=== PATIENT | female | born 1950 | race Caucasian/White ===

== ENCOUNTER 2018-09-09 10:22 | Emergency (ER) | payer MEDICARE, OTHER ==
[2018-09-09] MEDS ORDERED: Take Home: Amoxicillin/Clavulanate K 875-125 MG Tab, 2 Tab Pack PO ONE (10:41)
[2018-09-09] MEDS ORDERED: Amoxicillin/Clavulanate K 875-125 MG Tab PO ONE (10:41)
--- NOTE | 2018-09-09 10:47 | EDM.PDOC ---
ED HPI GENERAL MEDICAL PROBLEM - General Chief Complaint: General Stated Complaint: sinus complaints Time Seen by Provider: 09/09/18 10:28 Source of Information: Reports: Patient History Limitations: Reports: No Limitations - History of Present Illness INITIAL COMMENTS - FREE TEXT/NARRATIVE: Patient reports cough, sinus pain and pressure since Monday. History includes breast cancer with treatment with herceptin. Last treatment MondaySeptember 03. Reports fever, chills, headache, nausea. No vomiting, chest pain, sob, diarrhea. Onset: Gradual Duration: Getting Worse Location: Reports: Head Associated Symptoms: Reports: Cough, Nausea/Vomiting - Related Data Allergies Allergy/AdvReac Type Severity Reaction Status Date / Time paclitaxel [From Taxol] Allergy Cannot Verified 09/09/18 10:35 Remember Home Meds: Home Meds Anastrozole [Arimidex] 1 mg PO DAILY 09/09/18 [History] Denosumab [Prolia] 60 mg .XX Q6M 09/09/18 [History] Levothyroxine [Synthroid] 100 mcg PO ACBREAKFAST 09/09/18 [History] Lisinopril 2.5 mg PO DAILY 09/09/18 [History] Multivitamin [Daily Multiple Vitamin] 1 each PO DAILY 09/09/18 [History] Past Medical History Cardiovascular History: Reports: Hypertension Gastrointestinal History: Reports: Celiac Disease Endocrine/Metabolic History: Reports: Hypothyroidism Oncologic (Cancer) History: Reports: Breast Social & Family History - Tobacco Use Smoking Status *Q: Unknown Ever Smoked ED ROS GENERAL - Review of Systems Review Of Systems: See Below Constitutional: Reports: Fever, Chills HEENT: Reports: Sinus Problem, Throat Pain Respiratory: Reports: Cough Cardiovascular: Reports: No Symptoms Endocrine: Reports: No Symptoms GI/Abdominal: Reports: No Symptoms : Reports: No Symptoms Musculoskeletal: Reports: No Symptoms Skin: Reports: No Symptoms Neurological: Reports: No Symptoms Psychiatric: Reports: No Symptoms Hematologic/Lymphatic: Reports: No Symptoms Immunologic: Reports: No Symptoms ED EXAM, GENERAL - Physical Exam Exam: See Below Exam Limited By: No Limitations General Appearance: Alert, WD/WN, No Apparent Distress Eye Exam: Bilateral Eye: EOMI, Normal Inspection, PERRL Ears: Normal TMs Ear Exam: Bilateral Ear: Auricle Normal, Canal Normal, TM normal Nose: Normal Inspection, Normal Mucosa, No Blood Throat/Mouth: Normal Lips, Normal Teeth, Normal Gums, Normal Voice, No Airway Compromise, Inflammation (posterior pharynx) Head: Atraumatic, Normocephalic Neck: Normal Inspection, Supple, Non-Tender, Full Range of Motion Respiratory/Chest: No Respiratory Distress, Lungs Clear, Normal Breath Sounds, No Accessory Muscle Use, Chest Non-Tender Cardiovascular: Normal Peripheral Pulses, Regular Rate, Rhythm, No Edema, No Gallop, No JVD, No Murmur, No Rub GI/Abdominal: Normal Bowel Sounds, Soft, Non-Tender, No Organomegaly, No Distention, No Abnormal Bruit, No Mass Back Exam: Normal Inspection, Full Range of Motion, NT Extremities: Normal Inspection, Normal Range of Motion, Non-Tender, Normal Capillary Refill, No Pedal Edema Neurological: Alert, Oriented, CN II-XII Intact, Normal Cognition, Normal Gait, Normal Reflexes, No Motor/Sensory Deficits Psychiatric: Normal Affect, Normal Mood Skin Exam: Warm, Dry, Intact, Normal Color, No Rash Lymphatic: No Adenopathy Course - Vital Signs Last Recorded V/S: Last Vital Signs Temp 37.4 C 09/09/18 10:26 Pulse 100 09/09/18 10:26 Resp 16 09/09/18 10:26 BP 157/68 H 09/09/18 10:26 Pulse Ox 97 09/09/18 10:26 - Orders/Labs/Meds Orders: Active Orders 24 hr Category Date Time Status Amoxicillin/Clavulanate K [Augmentin 875 MG/125 MG] Med 09/09/18 10:41 Once 1 tab PO ONETIME ONE Amoxicillin/Clavulanate K [Take Home: Amox/Clavulanate Med 09/09/18 10:41 Once 875-12, 2 Tab Pac] 1 packet PO ONETIME ONE Departure - Departure Time of Disposition: 11:05 Disposition: Home, Self-Care 01 Condition: Fair Clinical Impression: Acute sinus infection - Discharge Information *PRESCRIPTION DRUG MONITORING PROGRAM REVIEWED*: Not Applicable *COPY OF PRESCRIPTION DRUG MONITORING REPORT IN PATIENT DARRICK: Not Applicable Instructions: Sinusitis, Adult, [id number], Amoxicillin; Clavulanic Acid tablets, Probiotics Additional Instructions: Plan 1. Stay well hydrated 2. Follow up with Dr. Slater as needed for additional symptom management 3. Take the full course of augmentin even if feeling better. 875/125 mg twice a day for 10 days 4. You should eat 1-2 servings of yogurt daily to prevent a yeast infection and a bacterial infection of the intestines due to antibiotic use 5. Try over the counter preparations for additional symptom management. Safe antihistamine/decongestant due to blood pressure, flonase for sinus inflammation , nyquil/cough preparations or tea and honey for cough 6. Please call if you have any additional questions or concerns - Problem List & Annotations (1) Acute sinus infection SNOMED Code(s): 54014185 Code(s): J01.90 - ACUTE SINUSITIS, UNSPECIFIED Status: Acute Priority: Low Qualifiers: Sinusitis location: unspecified location Recurrence: recurrent Qualified Code(s): J01.91 - Acute recurrent sinusitis, unspecified - Problem List Review Problem List Initiated/Reviewed/Updated: Yes - My Orders Last 24 Hours: My Active Orders 09/09/18 10:41 Amoxicillin/Clavulanate K [Augmentin 875 MG/125 MG] 1 tab PO ONETIME ONE Amoxicillin/Clavulanate K [Take Home: Amox/Clavulanate 875-12, 2 Tab Pac] 1 packet PO ONETIME ONE - Assessment/Plan Last 24 Hours: My Active Orders 09/09/18 10:41 Amoxicillin/Clavulanate K [Augmentin 875 MG/125 MG] 1 tab PO ONETIME ONE Amoxicillin/Clavulanate K [Take Home: Amox/Clavulanate 875-12, 2 Tab Pac] 1 packet PO ONETIME ONE Assessment:: sinus infection Plan: Plan 1. Stay well hydrated 2. Follow up with Dr. Slater as needed for additional symptom management 3. Take the full course of augmentin even if feeling better. 875/125 mg twice a day for 10 days 4. You should eat 1-2 servings of yogurt daily to prevent a yeast infection and a bacterial infection of the intestines due to antibiotic use 5. Try over the counter preparations for additional symptom management. Safe antihistamine/decongestant due to blood pressure, flonase for sinus inflammation , nyquil/cough preparations or tea and honey for cough 6. Please call if you have any additional questions or concerns
[2018-09-09] MEDS ORDERED: Take Home: Amoxicillin/Clavulanate K 875-125 MG Tab, 2 Tab Pack ONE (10:53)
[2018-09-09] MEDS ORDERED: Amoxicillin/Clavulanate K 875-125 MG Tab ONE (10:53)
== END 2018-09-09 11:05 | disposition home or self-care (01) ==
LOC: VM.ED 10:22
DX: J01.90 Acute sinusitis, unspecified (principal); I10 Essential (primary) hypertension; E03.9 Hypothyroidism, unspecified; Z88.8 Allergy status to other drugs, medicaments and biological substances
CPT/HCPCS: 99282; A9270

== ENCOUNTER 2019-07-13 09:05 | Emergency (ER) | payer MEDICARE, OTHER ==
--- NOTE | 2019-07-13 10:16 | EDM.PDOC ---
ED HPI GENERAL MEDICAL PROBLEM - General Chief Complaint: General Stated Complaint: POSITIVE FOR FLU VIRUS;BUT STILL HAS FEVER;PRESSUR Time Seen by Provider: 07/13/19 09:50 Source of Information: Reports: Patient - History of Present Illness INITIAL COMMENTS - FREE TEXT/NARRATIVE: Patient comes into the emergency department with complaint of headache, fever, body aches, and cough. Patient states that she is in the clinic earlier in the week and was diagnosed with influenza. She has had a low grade fever intermittently since being seen. She is concerned with still feeling ill. She states her fevers have not been greater than 100.2. She continues to have the body aches and the cough. She does feel that she may be feeling slightly better than when she first became ill. She continues to drink and eat without any difficulty. She is able to complete her activities of daily living however she states that she has low energy to complete them. She denies any chest pain, shortness of breath, sinus congestion/pressure, GI concerns or peripheral edema. Severity: Mild Improves with: Reports: None Worsens with: Reports: None Associated Symptoms: Reports: No Other Symptoms - Related Data Allergies Allergy/AdvReac Type Severity Reaction Status Date / Time paclitaxel [From Taxol] Allergy Cannot Verified 09/09/18 10:35 Remember Home Meds: Home Meds Anastrozole [Arimidex] 1 mg PO DAILY 09/09/18 [History] Denosumab [Prolia] 60 mg .XX Q6M 09/09/18 [History] Levothyroxine [Synthroid] 100 mcg PO ACBREAKFAST 09/09/18 [History] Lisinopril 2.5 mg PO DAILY 09/09/18 [History] Multivitamin [Daily Multiple Vitamin] 1 each PO DAILY 09/09/18 [History] Past Medical History Cardiovascular History: Reports: Hypertension Gastrointestinal History: Reports: Celiac Disease Endocrine/Metabolic History: Reports: Hypothyroidism Oncologic (Cancer) History: Reports: Breast ED ROS GENERAL - Review of Systems Review Of Systems: See Below Constitutional: Reports: Fever, Chills, Malaise, Fatigue, Decreased Appetite HEENT: Reports: No Symptoms Respiratory: Reports: No Symptoms Cardiovascular: Reports: No Symptoms Endocrine: Reports: No Symptoms GI/Abdominal: Reports: No Symptoms : Reports: No Symptoms Musculoskeletal: Reports: No Symptoms Skin: Reports: No Symptoms Neurological: Reports: No Symptoms Psychiatric: Reports: No Symptoms Hematologic/Lymphatic: Reports: No Symptoms Immunologic: Reports: No Symptoms ED EXAM, GENERAL - Physical Exam Exam: See Below Exam Limited By: No Limitations General Appearance: Alert, WD/WN, No Apparent Distress Eye Exam: Bilateral Eye: EOMI, PERRL Neck: Normal Inspection, Supple, Non-Tender, Full Range of Motion Respiratory/Chest: No Respiratory Distress, Lungs Clear, Normal Breath Sounds, No Accessory Muscle Use, Chest Non-Tender Cardiovascular: Normal Peripheral Pulses, Regular Rate, Rhythm, No Edema GI/Abdominal: Normal Bowel Sounds, Soft, Non-Tender Back Exam: Normal Inspection, Full Range of Motion Extremities: Normal Inspection, Normal Range of Motion, Non-Tender Neurological: Alert, Oriented, CN II-XII Intact, Normal Gait Psychiatric: Normal Affect, Normal Mood Skin Exam: Warm, Dry, Intact, Normal Color Departure - Departure Time of Disposition: 10:05 Disposition: Home, Self-Care 01 Condition: Good Clinical Impression: Influenza - Discharge Information *PRESCRIPTION DRUG MONITORING PROGRAM REVIEWED*: Not Applicable *COPY OF PRESCRIPTION DRUG MONITORING REPORT IN PATIENT DARRICK: Not Applicable Instructions: Influenza, Adult Referrals: Rylie Slater MD [Primary Care Provider] - Forms: ED Department Discharge Additional Instructions: 1. rest 2. increase fluids 3. Can take Tylenol or ibuprofen as needed for pain, discomfort, and fever 4. Information regarding influenza in the packet 5. Follow-up with her primary care provider if not feeling better next week 6. Can use [id number] decongestants to help with cough 7. Call with any questions or concerns Sepsis Event Note - Focused Exam Date Exam was Performed: 07/13/19 Time Exam was Performed: 12:56 - Assessment/Plan Assessment:: 1. body aches 2. headache 3. fatigue 4. Influenza diagnosed in clinic Plan: 1. Education regarding the course of treatment and expected time frame of healing and wellness. 2. Patient has been slowly getting better and has not had a fever over 100.2. without medication use. 3. Patient is encouraged to rest and continue to allow her body to heal. 4. She was encouraged to follow up or return if symptoms progressed or worsened. 5. All questions and concerns were addressed prior to discharge.
== END 2019-07-13 10:10 | disposition home or self-care (01) ==
LOC: VM.ED 09:05
DX: J11.1 Influenza due to unidentified influenza virus with other respiratory manifestations (principal); I10 Essential (primary) hypertension; E03.9 Hypothyroidism, unspecified; Z79.899 Other long term (current) drug therapy; Z88.8 Allergy status to other drugs, medicaments and biological substances
CPT/HCPCS: 99283; 99284-GF